=== PATIENT | male | born 1955 | race Caucasian/White ===

== ENCOUNTER 2024-06-04 23:22 | Emergency (ER) | payer MEDICARE, OTHER ==
[~2024-06-04] VITALS: Ht 170.2 cm; Wt 69.9 kg
--- NOTE | 2024-06-05 00:05 | NUR ---
BIBDAUGHTER FROM HOME C/O L LEG PAIN OVER 1 WEEK. DENIES INJURY OR RECENT TRAVELS
[2024-06-05] MEDS ORDERED: HYDROCODONE/APAP 5/325MG TABLET ONE (00:29)
[2024-06-05] MEDS: HYDROCODONE/APAP 5/325MG TABLET PO ONE (00:30)
--- NOTE | 2024-06-05 00:50 | NUR ---
US AT BEDSIDE.
[2024-06-05 02:12] VITALS: BP 135/74; TEMP 97.8; O2SAT 99
--- NOTE | 2024-06-05 02:13 | NUR ---
Patient does not wish to proceed with medical care recommended by ( ). Patient given information related to possible complications, up to and including , which could occur as a result of leaving the hospital at this time. Patient verbalizes understanding of risks involved due to leaving against medical advice. Patient has signed AMA form.
== END 2024-06-05 02:13 | disposition left against medical advice (07) ==
LOC: ER 23:30
DX: M79.605 Pain in left leg (principal)
CPT/HCPCS: 93971-TC